=== PATIENT | female | born 1950 | race Two or more races ===

== ENCOUNTER 2024-04-02 06:06 | Inpatient (IN) | payer OTHER, SELFPAY ==
--- NOTE | 2024-03-20 08:45 | CM ---
Patient is scheduled for lumbar spine surgery on 04/02/24. Spoke with patient's daughter, Jacqueline, prior to surgery via telephone. Introduced role of the Orthopedic Navigator. She reports that patient lives alone in a two story home. There are no
steps to enter and a flight of steps to the second floor. Patient currently functions independently. She has no DME and has never had VN services.
Discussed orthopedic program, post surgical plans and tentative plan for patient to return home when directed by surgeon. She is in agreement with tentative plan and states that she lives close by and will provide support to patient after surgery.
Plan: Orthopedic Navigator will remain available to assist with the care of patient and will reassess discharge needs after surgery.
[2024-03-21 13:23] VITALS: BMI 35.2
[2024-03-21 13:46] LABS: Hematocrit 36.6 % (37.0-47.0); Hemoglobin 12.5 g/dL (12.0-16.0); Mean Corp Hgb Conc. 34.2 g/dL (33.0-37.0); Mean Corpuscular Hgb 29.4 pg (27.0-31.0); Mean Corpuscular Volume 86.1 fL (81.0-99.0); Mean Platelet Volume 9.5 fL (7.4-10.4); Platelet Count 378 10^3/uL (130-400); Red Blood Cell Count 4.25 10^6/uL (4.20-5.40); Red Cell Dist. Width 13.4 % (11.5-14.5); White Blood Cell Count 10.5 10^3/uL (4.8-10.8)
[2024-03-21 14:24] LABS: Glycohemoglobin (HgbA1c) 6.3 % (4.0-5.6)
[2024-03-21 15:01] LABS: ALT (SGPT) 19 U/L (0-35); AST (SGOT) 24 U/L (14-36); Albumin 4.4 g/dl (3.5-5.0); Alkaline Phosphatase 43 U/L (38-126); Blood Urea Nitrogen 17 mg/dl (7-17); Calcium 10.1 mg/dl (8.4-10.2); Carbon Dioxide 28 mmol/L (22-30); Chloride 99 mmol/L (98-107); Estimated Creatinine Clearance 84 ml/min; Glucose 97 mg/dl (70-99); Potassium 4.5 mmol/L (3.5-5.1); Sodium 137 mmol/L (135-145); Total Bilirubin 1.2 mg/dl (0.2-1.3); Total Protein 7.6 g/dl (6.3-8.2); eGFR > 60.00
[2024-03-24 08:40] VITALS: BMI 35.2
[2024-04-02] VITALS (25 sets, daily range): BP systolic 5–129; BP diastolic 49–95; PULSE 90–92; O2SAT 91–92; BMI 35.2
[2024-04-02] MEDS: CELEBREX 200 MG PO (07:03)
[2024-04-02] MEDS: LYRICA 150 MG PO (07:03)
[2024-04-02] MEDS: SKELAXIN 800 MG PO (07:03)
[2024-04-02] MEDS: TYLENOL 1000 MG PO (07:04)
[2024-04-02 07:14] LABS: Glucose - Point of Care 138 mg/dl (70-99)
[2024-04-02] MEDS: NORMOSOL-R 1000 IV ×3 (07:17→23:06)
[2024-04-02] MEDS: VANCOCIN 300 ML IV (07:18)
[2024-04-02] MEDS: VANCOCIN 300 MG IV (07:18)
--- NOTE | 2024-04-02 07:34 | PTCARENOTE ---
Patient allergic to Percocet but takes Tylenol at home with no difficulty. Patient ordered Tylenol and Tylenol given because she takes it at home.
[2024-04-02] MEDS: DILAUDID 0.5 MG IV (10:26)
[2024-04-02 10:32] LABS: Glucose - Point of Care 163 mg/dl (70-99)
--- NOTE | 2024-04-02 11:12 | W.PN.ORTHO ---
Today's Communication / Plan
-
D/c when clinically stable.
Assessment
.
Distal Motor Intact: Yes
Dressing:
Clean, dry and intact.
Assessment:
Lumbar stenosis s/p L3-L4 Lami and Poss. PSF w/ Dr Santacruz 04/02/24
DVT prophylaxis - b/l SCDs/TEDs
+ Hemovac drain - monitor output overnight
HTN - + parameters - monitor BP
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
- Resume Metformin
- SSI AC during admission
Crohn's disease, on Hyrimoz weekly - Hyrimoz held 2 weeks pre-op; cannot resume until 4 weeks post-surgery
History of iron deficiency anemia; pre-operative hemoglobin stable - H&H in AM
Hyperlipidemia
Right bundle branch block
Colon polyps
Asymptomatic, reducible abdominal hernia
Remote vertigo
Osteoarthritis
Obesity, BMI 35.2
The patient will require the use of a back brace post-surgery
Plan
.
Surgery / Date: L3-L4 Lami and Poss. PSF w/ Dr Santacruz 04/02/24
DVT Prophylaxis: Other (b/l SCDs/TEDs )
Activity:
Out of bed.
PT/OT
Discharge Plan: Home
Subjective
.
.:
Patient resting comfortably in PACU after IV Dilaudid was given.
Groggy from GA/pre-op pain meds; however, is arousable to verbal stimuli.
Denies any new significant complaints.
Vital Signs and Labs
.
Vital Signs and Labs:
Lab Results
03/21/24 13:20
03/21/24 13:20
Temp Pulse Resp BP Pulse Ox
98.7 F 75 16 129/74 99
04/02/24 07:21 04/02/24 07:21 04/02/24 07:21 04/02/24 07:21 04/02/24 07:21
Physical Exam
-
HEENT: No pallor, cyanosis, or jaundice. Throat clear.
NECK: Supple. No JVD.
RESPIRATORY: Lungs clear to auscultation.
CVS: S1, S2 normal. RRR.�
ABDOMEN: Soft, non-tender. No distension. Obese.
EXTREMITIES: Strength equal.
BOTTLE GAUGER: AOx3. No focal deficits. document control coordinator grossly intact
[2024-04-02] MEDS: DILAUDID 0.25 MG IV (11:16)
[2024-04-02] MEDS: Hygroton PO (12:19)
[2024-04-02] MEDS: NORVASC PO (12:20)
[2024-04-02 12:25] LABS: Glucose - Point of Care 157 mg/dl (70-99)
--- NOTE | 2024-04-02 14:40 | PTCARENOTE ---
Pt received from the PACU via bed. Transport was w/o incident. Pt AAOx3, HRR, lungs are clear,resp. easy. Pt with guaze dressing covered by tegaderm to Lumbar back. Dressing has moderate amount of sanquinous drainage. Drainage marked to assess more
easily. Hemovac drain to left back intact draining sanquinous fluid. VSS, Pt is afebrile. Pt instructed on plan of care. Pt verbalized understanding of instructions. Call gomez is within reach.
[2024-04-02 15:38] LABS: Glucose - Point of Care 176 mg/dl (70-99)
[2024-04-02] MEDS: NOVOLOG FLEXPEN-MODERATE RESISTANCE SC (16:33)
[2024-04-02] MEDS: PROTONIX PO (16:34)
[2024-04-02] MEDS: GLUCOPHAGE 500 MG PO (16:41)
[2024-04-02] MEDS: NEURONTIN 600 MG PO ×2 (16:41→22:04)
[2024-04-02] MEDS: ULTRAM 50 MG PO (16:41)
[2024-04-02] MEDS: ULTRAM PO (16:41)
[2024-04-02] MEDS: ANCEF 5 IV ×2 (16:42→23:06)
[2024-04-02 18:14] LABS: Glucose - Point of Care 183 mg/dl (70-99)
[2024-04-02] MEDS: NOVOLOG FLEXPEN-MODERATE RESISTANCE 1 UNITS SC (18:49)
[2024-04-02] MEDS: VANCOCIN 200 IV (19:20)
[2024-04-02] MEDS: SENOKOT PO (20:56)
[2024-04-02] MEDS: COLACE PO (20:56)
[2024-04-02] MEDS: TYLENOL 650 MG PO (22:10)
[2024-04-02 22:15] LABS: Glucose - Point of Care 185 mg/dl (70-99)
[2024-04-03 03:22] VITALS: BP 124/65
[2024-04-03 06:04] LABS: Hematocrit 31.1 % (37.0-47.0); Hemoglobin 10.6 g/dL (12.0-16.0)
[2024-04-03 06:37] LABS: Blood Urea Nitrogen 11 mg/dl (7-17); Calcium 9.3 mg/dl (8.4-10.2); Carbon Dioxide 27 mmol/L (22-30); Chloride 99 mmol/L (98-107); Estimated Creatinine Clearance 84 ml/min; Glucose 131 mg/dl (70-99); Potassium 4.4 mmol/L (3.5-5.1); Sodium 136 mmol/L (135-145); eGFR > 60.00
[2024-04-03 07:38] VITALS: BP 122/72
[2024-04-03] MEDS: NEURONTIN 600 MG PO (07:40)
[2024-04-03] MEDS: Hygroton 25 MG PO (07:40)
[2024-04-03] MEDS: NORVASC 10 MG PO (07:41)
[2024-04-03] MEDS: SENOKOT 17.1999999999999993 MG PO (07:41)
[2024-04-03] MEDS: PROTONIX 40 MG PO (07:41)
[2024-04-03] MEDS: GLUCOPHAGE 500 MG PO (07:41)
[2024-04-03] MEDS: COLACE 100 MG PO (07:41)
[2024-04-03] MEDS: TYLENOL 650 MG PO (07:43)
[2024-04-03] MEDS: NOVOLOG FLEXPEN-MODERATE RESISTANCE SC (07:49)
[2024-04-03 07:55] LABS: Glucose - Point of Care 142 mg/dl (70-99)
--- NOTE | 2024-04-03 08:43 | CM ---
Addendum entered by Vania Herrera 04/03/24 10:25:
Patient did well in therapy. She has no concerns about going home and has no discharge planning needs. She has updated her family.
Original Note:
Reviewed chart and held rounds with PT, OT and RN. Patient had planned lumbar spine surgery with Dr. Santacruz on 04/02. Met with patient at bedside. Confirmed information previously obtained for assessment and discussed discharge plans. Patient continues
to plan to return home at discharge. She will have support from her family and friends but no one will stay with her. Reviewed that she will work with PT/OT this morning and that discharge needs will depend on her functional status. However, no
needs currently identified.
Patient has no DME.
Patient will use [facility] pharmacy for discharge prescriptions.
[2024-04-03] MEDS: NORCO 5/325 1 TABLET PO (09:45)
[2024-04-03 10:00] VITALS: BP 126/66; PULSE 79
--- NOTE | 2024-04-03 10:08 | W.PN.ORTHO ---
Today's Communication / Plan
-
Await PT recs. Did well w/ OT today.
D/c later today if remaining clinically stable.
Assessment
.
Distal Motor Intact: Yes
Dressing:
Moderate old incisional bleeding on dressing. Dressing changed and now C/D/I.
Assessment:
Lumbar stenosis s/p L3-L4 Hemilaminectomy and PSF w/ Dr Santacruz 04/02/24
DVT prophylaxis - b/l SCDs/TEDs
+ Hemovac drain - output minimal overnight - d/c drain
HTN - + parameters - BPs stable
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
Crohn's disease, on Hyrimoz weekly - Hyrimoz held 2 weeks pre-op; cannot resume until 4 weeks post-surgery
Iron deficiency anemia, exacerbated by recent acute blood loss - Hgb 10.6 POD 1
- Asymptomatic, hemodynamically stable
Hyperlipidemia
Right bundle branch block
Colon polyps
Asymptomatic, reducible abdominal hernia
Remote vertigo
Osteoarthritis
Obesity, BMI 35.2
The patient will require the use of a back brace post-surgery
Plan
.
Surgery / Date: L3-L4 Hemilaminectomy and PSF w/ Dr Santacruz 04/02/24
DVT Prophylaxis: Other (b/l SCDs/TEDs )
Activity:
Out of bed.
PT/OT
Discharge Plan: Home (vs home w/ home PT )
Subjective
.
.:
Patient resting comfortably in her chair.
Low back pain well tolerated w/ current pain meds.
Denies any new significant complaints overnight.
Eager for potential d/c today.
Vital Signs and Labs
.
Vital Signs and Labs:
Lab Results
04/03/24 05:00
04/03/24 05:00
Temp Pulse Resp BP Pulse Ox
98.5 F 79 18 122/72 99
04/03/24 07:38 04/03/24 07:41 04/03/24 07:38 04/03/24 07:41 04/03/24 07:38
Physical Exam
-
HEENT: No pallor, cyanosis, or jaundice. Throat clear.
NECK: Supple. No JVD.
RESPIRATORY: Lungs clear to auscultation.
CVS: S1, S2 normal. RRR.�
ABDOMEN: Soft, non-tender. No distension. Obese.
EXTREMITIES: Strength equal, no calf pain with palpation/dorsiflexion. Calves soft.
HIP HOP DANCER: AOx3. No focal deficits. crate tier grossly intact
--- NOTE | 2024-04-03 10:24 | W.DS.TRANS ---
DC Summary - Personal Clothing Laundry Aide
-
Discharge Instructions:
Sleep Apnea Risk Intermediate
Discharge Diagnosis/Procedures Lumbar stenosis s/p L3-L4 Hemilaminectomy and
Posterior Spinal Fusion w/ Dr Santacruz 04/02/24
Diet Diabetic, Carb Controlled
Activity As tolerated
Additional Activity No heavy lifting >10 lbs
Driving Restrictions Not until seen by your Dr
Bathing Restrictions OK to shower in 4 days
Instructions:
Stand-Alone Forms: [facility] Lumbar D/C Inst.
Changes to Home Medications: Yes
Discharge Medications:
DC Medications w/original date entered in [email or web address]
atorvastatin 10 mg tablet 10 mg PO .EVERY OTHER NIGHT 03/20/24
icosapent ethyl 1 gram capsule 2 g PO BID 03/20/24
metformin 500 mg tablet 500 mg PO BID 03/20/24
Saccharomyces boulardii 250 mg capsule (Florastor) 250 mg PO BID #10 caps 04/03/24
acetaminophen 325 mg tablet 650 mg (2 x 325 mg) PO Q6H PRN mild pain #60 tabs 04/03/24
amlodipine 10 mg tablet 10 mg PO DAILY #30 tabs 04/03/24
cephalexin 500 mg capsule 500 mg PO QID #20 caps 04/03/24
chlorthalidone 25 mg tablet 25 mg PO DAILY #0 tabs 04/03/24
docusate sodium 100 mg capsule 100 mg PO BID #30 caps 04/03/24
gabapentin 600 mg tablet 600 mg PO TID #0 tabs 04/03/24
hydrocodone 5 mg-acetaminophen 325 mg tablet 1 - 2 tab PO Q6H PRN moderate-severe pain #30 tabs 04/03/24
ondansetron HCl 4 mg tablet 4 mg PO Q6H PRN nausea and vomiting #30 tabs 04/03/24
pantoprazole 40 mg tablet,delayed release 40 mg PO DAILY #30 tabs 04/03/24
sennosides 8.6 mg tablet (Senna Laxative) 17.2 mg (2 x 8.6 mg) PO BID PRN Constipation #30 tabs 04/03/24
Home Medication Changes
Saccharomyces boulardii 250 mg capsule (Florastor) 250 mg PO BID #10 caps 04/03/24
acetaminophen 325 mg tablet 650 mg (2 x 325 mg) PO Q6H PRN mild pain #60 tabs 04/03/24
cephalexin 500 mg capsule 500 mg PO QID #20 caps 04/03/24
docusate sodium 100 mg capsule 100 mg PO BID #30 caps 04/03/24
hydrocodone 5 mg-acetaminophen 325 mg tablet 1 - 2 tab PO Q6H PRN moderate-severe pain #30 tabs 04/03/24
ondansetron HCl 4 mg tablet 4 mg PO Q6H PRN nausea and vomiting #30 tabs 04/03/24
pantoprazole 40 mg tablet,delayed release 40 mg PO DAILY #30 tabs 04/03/24
sennosides 8.6 mg tablet (Senna Laxative) 17.2 mg (2 x 8.6 mg) PO BID PRN Constipation #30 tabs 04/03/24
Pending Results: No
[2024-04-03] MEDS: NORMOSOL-R IV (10:41)
[2024-04-03 11:27] VITALS: BP 117/56
[2024-04-03 11:29] LABS: Glucose - Point of Care 160 mg/dl (70-99)
[2024-04-03 11:34] VITALS: BP 126/66; BP 140/80; PULSE 79
[2024-04-03] MEDS: NOVOLOG FLEXPEN-MODERATE RESISTANCE 1 UNITS SC (12:27)
--- NOTE | 2024-04-03 12:45 | PTCARENOTE ---
Patient discharged to home with son at this time via wheelchair. All discharge instructions discussed. Left with all belongings and discharge paperwork.
== END 2024-04-03 13:24 | disposition home or self-care (01) | DRG 460 ==
LOC: 2 SOUTH 06:06
PROVIDERS: Physician Assistant; ADMITTING PHYSICIAN Orthopaedic Surgery Orthopaedic Surgery of the Spine; FAMILY PHYSICIAN Nurse Practitioner Family
PROC: 0QB00ZZ Excision of Lumbar Vertebra, Open Approach (ICD-10-PCS; 2024-04-02)
PROC: 0SG00K1 Fusion of Lumbar Vertebral Joint with Nonautologous Tissue Substitute, Posterior Approach, Posterior Column, Open Approach (ICD-10-PCS; 2024-04-02)
PROC: 01NB0ZZ Release Lumbar Nerve, Open Approach (ICD-10-PCS; 2024-04-02)
DX: M48.061 Spinal stenosis, lumbar region without neurogenic claudication (principal); D84.821 Immunodeficiency due to drugs; K50.90 Crohn's disease, unspecified, without complications; E11.40 Type 2 diabetes mellitus with diabetic neuropathy, unspecified; D50.9 Iron deficiency anemia, unspecified; I10 Essential (primary) hypertension; E66.9 Obesity, unspecified; Z68.35 Body mass index [BMI] 35.0-35.9, adult; M43.16 Spondylolisthesis, lumbar region; T45.1X5A Adverse effect of antineoplastic and immunosuppressive drugs, initial encounter; I45.10 Unspecified right bundle-branch block; K46.9 Unspecified abdominal hernia without obstruction or gangrene; E78.5 Hyperlipidemia, unspecified; M51.26 Other intervertebral disc displacement, lumbar region; M79.605 Pain in left leg; Z79.84 Long term (current) use of oral hypoglycemic drugs; Z79.60 Long term (current) use of unspecified immunomodulators and immunosuppressants; Z79.899 Other long term (current) drug therapy; Z88.5 Allergy status to narcotic agent; Z88.8 Allergy status to other drugs, medicaments and biological substances
CPT/HCPCS: 36415; 72100; 76000; 80048; 80053; 82962; 83036; 85014; 85018; 85027; 87070; 93005; 97116; 97163; 97166; 97530; 97535; C1713; C1729; C1776